=== PATIENT | female | born 1970 | race Caucasian/White ===

== ENCOUNTER 2024-12-08 09:51 | Emergency (ER) | payer MEDICARE, MEDICAID, SELFPAY ==
[2024-12-08 10:01] VITALS: BP 157/105; PULSE 96; TEMP 37; O2SAT 99; BMI 42.2
--- NOTE | 2024-12-08 10:01 | XR_ITS ---
The [address] [address] Patient Name: DOREEN URIAS MRN: [id number] date: 1970 Sex: F Assigned Patient Location: ED.MAIN Current Patient Location: ED.MAIN Accession/Order Number: [id number] Exam Date: 12/08/2024 10:20 Report Date: 12/08/2024 10:45 At the request of: MARIA A ABURTO MD Procedure: XR hand RT min 3V RIGHT HAND - 3 views CLINICAL DATA: Pain and swelling over the third and fourth metacarpal phalangeal joints after feeling a pop last night. COMPARISON: None AP, lateral and oblique views were obtained. A marker was placed in the area of clinical concern. There is no evidence of fracture or dislocation. There is mild degenerative change at some the interphalangeal joints, greatest at the distal index finger as well as at the first carpal metacarpal joint. There are cystic changes involving some of the carpal bones. Dorsal soft tissue swelling is visualized over the metacarpal heads in the area marked. There is no underlying radiopaque foreign body or subcutaneous air. XR/XR hand RT min 3V IMPRESSION: MILD DEGENERATIVE CHANGES. NO ACUTE BONY FINDINGS. DORSAL SOFT TISSUE SWELLING. Impression dictated by: Shannan Robbins M.D. 12/08/2024 10:45 AM Dictation Location: [place] [address] Electronically authenticated by: [id number] Y Date: 12/08/2024 10:45
--- NOTE | 2024-12-08 10:04 | ED_ITS ---
HPI HPI - General Adult General Chief complaint: Extremity Injury, Upper Stated complaint: R HAND INJURY Time Seen by Provider: 12/08/24 10:01 History of Present Illness HPI narrative: 54-year-old female presents for pain to her right middle finger. She states t hat yesterday evening she injured her finger when she tried to pull up her shirt when she was in her car but the shirt was stuck in it pulled on her finger and she states it popped out of place and she put it back in place. She points to the entire third finger to indicate the area of pain. She is right-handed. No other injury was sustained. Related Data Previous Rx's ?Medication ?Instructions ?Recorded etodolac 300 mg capsule 300 mg PO Q8H PRN pain #20 c aps 12/08/24 Allergies Allergy/AdvReac Type Severity Reaction Status Date / Time No Known Drug Allergies Allergy Verified 12/08/24 09:57 Review of Systems ROS Narrative A ten point review of systems is negative except as noted above. PFSH PFSH Social History Little interest or pleasure in doing things: not at all Feeling down, depressed, or hopeless: not at all Exam Narrative Exam Narrative: Nurses note and vital signs reviewed and patient is not hypoxic. General:The patient appears well and in no apparent distress.Patient is resting comfortably on cart. Skin:Warm, dry, no pallor noted.There is no rash noted. Head:Normocephalic, atraumatic Eye: Normal conjunctiva, no drainage Ears, Nose, Mouth, and Throat: oral mucosa is moist. Nares patent. Cardiovascular:Regular Rate and Rhythm Respiratory:Patient is in no distress, no accessory muscle use Back:non-tender GI: Soft and nontender Musculoskeletal: Her right hand is examined. The 3rd and 4th fingers are taped together. There is some swelling at the base of the middle finger. Neurological:A&O, normal speech Psychiatric:Cooperative Constitutional Vital Signs, click to edit/add: Last Vital Signs Temp 98.6 F 12/08/24 10:01 Pulse 96 H 12/08/24 10:01 Resp 20 12/08/24 10:01 BP 157/105 H 12/08/24 10:01 Pulse Ox 99 12/08/24 10:01 O2 Del Method Room Air 12/08/24 10:01 Course Vital Signs Vital signs: Vital Signs Temperature 98.6 F 10/14/25 10:01 Pulse Rate 96 H 12/08/24 10:01 Respiratory Rate 20 12/08/24 10:01 Blood Pressure 157/105 H 12/08/24 10:01 Pulse Oximetry 99 12/08/24 10:01 Oxygen Delivery Method Room Air 12/08/24 10:01 Temperature 98.6 F 12/08/24 10:01 Pulse Rate 96 H 12/08/24 10:01 Respiratory Rate 20 12/08/24 10:01 Blood Pressure 157/105 H 12/08/24 10:01 Pulse Oximetry 99 12/08/24 10:01 Oxygen Delivery Method Room Air 12/08/24 10:01 Medical Decision Making MDM Narrative Medical decision making narrative: X-rays are negative per radiologist other than soft tissue swelling. Splint applied, application checked by me and found to be appropriate, she is geremias rovascular intact. She has an established orthopedist and she will follow-up with him. Treatment diagnosis and follow-up were discussed with the patient. Differential Diagnosis Differential Diagnosis: Sprain, fracture, dislocation Imaging Data Right hand x-ray: Radiologist's impression: ITS Impressions Hand X-Ray 12/08/24 10:01 IMPRESSION: MILD DEGENERATIVE CHANGES. NO ACUTE BONY FINDINGS. DORSAL SOFT TISSUE SWELLING. Impression dictated by: Shannan Robbins M.D. 12/08/2024 10:45 AM Dictation Location: [place] [address] Electronically authenticated by: [id number] Y Date: 12/08/2024 10:45 Discharge Plan Discharge Chief Complaint: Extremity Injury, Upper Clinical Impression: Sprain of finger of right hand Patient Disposition: Home, Self-Care Time of Disposition Decision: 10:50 Condition: Good Mode of Transportation: Private Vehicle Prescriptions / Home Meds: New etodolac 300 mg capsule 300 mg PO Q8H PRN (Reason: pain) Qty: 20 0RF Print Language: Faroese Instructions: Finger Sprain (ED) Additional Instructions: Follow-up with your orthopedist. Referrals: ALBARO ARRIAGA NP [Primary Care Provider] - 1 week
== END 2024-12-08 11:09 | disposition home or self-care (01) ==
PROVIDERS: Emergency Provider Emergency Medicine
DX: S63.612A Unspecified sprain of right middle finger, initial encounter (principal); X50.9XXA Other and unspecified overexertion or strenuous movements or postures, initial encounter
CPT/HCPCS: 29130; 73130; 99283